=== PATIENT | male | born 1960 | race Caucasian/White ===

== ENCOUNTER 2023-05-14 07:58 | Day surgery (SDC) | payer OTHER, SELFPAY ==
[2023-04-22 15:07] VITALS: BMI 29.9
[2023-05-01 09:05] VITALS: BMI 29.9
[2023-05-14 09:32] VITALS: BP 149/91; PULSE 93; RESP 14; TEMP 36.6; O2SAT 97
[2023-05-14] MEDS: LACTATED RINGERS 1,000 ML 150 ML IV CONT (09:40)
--- NOTE | 2023-05-14 09:50 | PM.HPGS ---
History of Present Illness History of Present Illness Consent: Risks, benefits, and alternatives have been discussed and questions answered. Patient agrees to proceed with procedure. Chief complaint: Positive Cologuard test Narrative: Nikita Davey is a 62 year old male presents for screening colonoscopy. Patient was found to have a positive Cologuard test. Patient's current weight appetite and bowel movements are normal. Patient denies abdominal pain. He has had no bleeding. Family history is noncontributory. Review of Systems Review of Systems: Review of systems noncontributory. [facility] Past Medical History Medical History (Updated 05/14/23 @ 09:52 by Enoch Sullivan MD) Abnormal fasting glucose (12/05/20) glucose 100. Glucose 99 on 02/19/2022. glucose 97 with hemoglobin A1c 5.7 on 02/21/2023. BMI 29.0-29.9,adult Encounter for prostate cancer screening PSA 0.6 on 12/02/2019. PSA 1.08 on 02/19/2022. PSA 1.28 on 02/21/2023. Encounter for screening for malignant neoplasm of colon Cologuard screening Was negative 12/11/19. Encounter for wellness examination in adult Hypersomnia Overweight (BMI 25.0-29.9) Screening, lipid Wears hearing aid in both ears Surgical History Surgical History H/O repair of rotator cuff Family History Family History Mother , Age 43 Breast Cancer Breast cancer Father , Age 87 Cancer Cancer Grandparent Emphysema lung Grandparent , Brain Tumor No problems noted. Social History Social History Smoking status: Never smoker Alcohol intake: never Substance use: never Substance use type: does not use Current Housing: Decline to Answer Concerned About Future Housing: Decline to Answer Difficulty Paying Gas/Electric Bills: Decline to Answer Difficulty Paying for Meds: Decline to Answer Currently Unemployed: Decline to Answer Difficulty w/ Childcare or Family Care: Decline to Answer Living arrangements: with family Occupation/Education: occupation Gender identity (if verbalized by the patient): Male Spiritual care concerns: No Meds Home Medications and Allergies Home Medications Medication Instructions Recorded Confirmed Type amlodipine 10 mg tablet 10 mg PO DAILY #90 tabs 09/18/22 05/14/23 Rx atorvastatin 20 mg tablet 20 mg PO DAILY #90 tabs 09/18/22 05/14/23 Rx lisinopril 20 mg tablet 20 mg PO DAILY #90 tabs 03/16/23 05/14/23 Rx aspirin 81 mg tablet,delayed 81 mg PO DAILY 05/01/23 05/14/23 History release (Adult Low Dose Aspirin) Allergies Allergy/AdvReac Type Severity Reaction Status Date / Time No Known Allergies Allergy Unknown Verified 05/14/23 09:30 Vital Signs Vital Signs - 24 hr 05/14/23 09:32 Temperature 97.8 F Pulse Rate 93 Respiratory Rate 14 Blood Pressure 149/91 H Pulse Oximetry 97 Oxygen Delivery Room Air Exam Narrative: Physical exam reveals patient to be alert. Vital signs stable. HEENT exam is unremarkable. Patient is anicteric. Lungs are clear to auscultation and percussion heart is without murmur or extra sounds. Abdomen bowel sounds are present soft nontender with no organomegaly. Digital external rectal exam is normal. Assessment and Plan Assessment and plan (1) Positive colorectal cancer screening using Cologuard test: Code(s): R19.5 - Other fecal abnormalities Status: Acute Assessment and Plan: Patient's Cologuard test was positive. Plan for screening colonoscopy at this time.
--- NOTE | 2023-05-14 09:58 | WPDANESEPPF ---
Anes - Initial Pre Proc Eval Procedure: Operation Date: 05/14/23 11:00 Proposed Procedures p Diagnostic Colonoscopy - Enoch Sullivan MD Date/Time: 05/14/23 09:58 Surgeon: Enoch Sullivan MD Pre Op Diagnosis: Positive Cologuard test Patient Data Age: 62 Gender: M Height: 1.83 m Weight: 95.55 kg Last Vital Signs Temp 36.6 C 05/14/23 09:32 Pulse 93 05/14/23 09:32 Resp 14 05/14/23 09:32 BP 149/91 H 05/14/23 09:32 Pulse Ox 97 05/14/23 09:32 O2 Del Method Room Air 05/14/23 09:32 Allergies Allergy/AdvReac Type Severity Reaction Status Date / Time No Known Allergies Allergy Unknown Verified 05/14/23 09:30 Home Medications Medication Instructions Recorded Confirmed Type amlodipine 10 mg tablet 10 mg PO DAILY #90 tabs 09/18/22 05/14/23 Rx atorvastatin 20 mg tablet 20 mg PO DAILY #90 tabs 09/18/22 05/14/23 Rx lisinopril 20 mg tablet 20 mg PO DAILY #90 tabs 03/16/23 05/14/23 Rx aspirin 81 mg tablet,delayed 81 mg PO DAILY 05/01/23 05/14/23 History release (Adult Low Dose Aspirin) Patient hx anesthesia problems: none Family hx anesthesia problems: none Results Review: All pre-operative results and documents have been reviewed as part of the pre-operative evaluation. [facility] Past Medical History Medical History Abnormal fasting glucose (12/05/20) glucose 100. Glucose 99 on 02/19/2022. glucose 97 with hemoglobin A1c 5.7 on 02/21/2023. BMI 29.0-29.9,adult Encounter for prostate cancer screening PSA 0.6 on 12/02/2019. PSA 1.08 on 02/19/2022. PSA 1.28 on 02/21/2023. Encounter for screening for malignant neoplasm of colon Cologuard screening Was negative 12/11/19. Encounter for wellness examination in adult Hypersomnia Overweight (BMI 25.0-29.9) Screening, lipid Wears hearing aid in both ears Surgical History Surgical History H/O repair of rotator cuff Family History Family History Mother , Age 43 Breast Cancer Breast cancer Father , Age 87 Cancer Cancer Grandparent Emphysema lung Grandparent , Brain Tumor No problems noted. Social History Social History Smoking status: Never smoker Alcohol intake: never Substance use: never Substance use type: does not use Current Housing: Decline to Answer Concerned About Future Housing: Decline to Answer Difficulty Paying Gas/Electric Bills: Decline to Answer Difficulty Paying for Meds: Decline to Answer Currently Unemployed: Decline to Answer Difficulty w/ Childcare or Family Care: Decline to Answer Living arrangements: with family Occupation/Education: occupation Gender identity (if verbalized by the patient): Male Spiritual care concerns: No Anes - Eval Final PreProcedure Day of Procedure 05/14/23 09:58 Patient weight: overweight Heart: regular rate and rhythm Lungs: clear to auscultation Airway: Mallampati scale class II Neurological: alert and oriented Last oral intake: >/= 8 hours ASA classification: II Emergent: no Anesthetic plan: proceed Anesthesia type and monitoring: general GIVS and standard monitoring Results Review: All pre-operative results and documents have been reviewed as part of the pre-operative evaluation. Informed Consent: The patient's anesthetic plan and its attendant risks and benefits were discussed with the patient/family/POA. Questions were solicited and answers provided to the satisfaction of the patient/family/POA.
[2023-05-14 10:33] VITALS: BP 113/76; PULSE 73; RESP 16; O2SAT 95
[2023-05-14 10:43] VITALS: BP 111/66; PULSE 77; RESP 18; O2SAT 97
--- NOTE | 2023-05-14 10:47 | WPDANESPN ---
Anes - Prog Note Post-Op Date/Time: 05/14/23 10:47 Cardiovascular status: normal Respiratory status: normal Airway patency: baseline Mental status: baseline Post-Op hydration status: normal Vital Signs: Last Vital Signs Temp 36.6 C 05/14/23 09:32 Pulse 73 05/14/23 10:33 Resp 16 05/14/23 10:33 BP 113/76 05/14/23 10:33 Pulse Ox 95 05/14/23 10:33 O2 Del Method Room Air 05/14/23 10:33 Pain Score (VAS): 0/10 I/O: Intake & Output 05/13/23 05/14/23 05/14/23 23:59 07:59 15:59 Intake Total 800 Balance 800 Patient Feedback: Patient satisfied with anesthetic care.
[2023-05-14 10:53] VITALS: BP 110/67; PULSE 75; RESP 18; O2SAT 97
== END 2023-05-14 11:00 | disposition home or self-care (01) ==
PROVIDERS: PCP Family Medicine; Visit Provider Internal Medicine Gastroenterology
PROC: 0DJD8ZZ Inspection of Lower Intestinal Tract, Via Natural or Artificial Opening Endoscopic (ICD-10-PCS; CPT 45378; principal; 2023-05-14 11:00)
DX: R19.5 Other fecal abnormalities (principal); K64.8 Other hemorrhoids
CPT/HCPCS: 45378

== ENCOUNTER 2024-12-14 09:47 | Outpatient (CLI) | payer OTHER, SELFPAY ==
--- OUTSIDE RECORDS SUMMARY | 2024-12-14 09:58 | XMS_ITS | Clinical Summary ---
Author Organization [facility] Address [address] [place] [address] Care Team Providers Care Filling And Packing Supervisor Name Role Phone Unavailable Primary Care Provider Unavailabl e Social History Tobacco Use Types Packs/Day Years Used Date Smoking Tobacco: Never Assessed Sex and Gender Information Value Date Recorded Sex Assigned at Not on file Legal Sex Male 9:13 AM FRAME [employer] Gender Identity Not on file Sexual Orientation Not on file Plan of Treatment Health Maintenance Due Date Last Done Comments DTAP/TDAP/TD VACCINES (1 - Tdap) 07/31/1978 COLORECTAL SCREENING 07/31/2004 Colorectal Cancer Screening 07/31/2004 FIT-DNA Q 3 years 07/31/2004 FIT/FOBT Q 1 year 07/31/2004 Flex Sig/CT Colonography Q 5 years 07/31/2004 PNEUMOCOCCAL VACCINE 50+ YEARS (1 of 1 - PCV) 08/01/19 10 ZOSTER VACCINE (1 of 2) 07/31/2009 INFLUENZA VACCINE (#1) 2024 RSV VACCINE (60+ or ) (1 - 1-dose 75+ series) 07/31/2034
--- NOTE | 2024-12-14 11:08 | ECG_ITS ---
Test Date: 2024-12-14 11:20:08 Measurements Intervals [place] Rate: 87 P: 44 NE: 195 QRS: 59 QRSD: 95 T: 48 QT: 353 QTc: 426 Interpretive Statements SINUS RHYTHM BASELINE ARTIFACT- I, II, III, AVR, AVL, AVF, V1 NORMAL ECG No previous ECG available for comparison Electronically Signed On 12-14-2024 11:41:32 CDT by Celestine Lawson D.O.
== END 2024-12-14 09:48 | disposition home or self-care (01) ==
PROVIDERS: PCP Family Medicine; Referring Provider Family Medicine; Visit Provider Orthopaedic Surgery
DX: Z01.810 Encounter for preprocedural cardiovascular examination (principal); M75.102 Unspecified rotator cuff tear or rupture of left shoulder, not specified as traumatic
CPT/HCPCS: 93005

== ENCOUNTER 2024-12-15 06:36 | Outpatient (CLI) | payer OTHER, SELFPAY ==
--- OUTSIDE RECORDS SUMMARY | 2024-12-15 06:42 | XMS_ITS | Clinical Summary ---
Author Organization [facility] Address [address] [place] [address] Care Team Providers Care Ichthyology Teacher Name Role Phone Unavailable Primary Care Provider Unavailabl e Social History Tobacco Use Types Packs/Day Years Used Date Smoking Tobacco: Never Assessed Sex and Gender Information Value Date Recorded Sex Assigned at Not on file Legal Sex Male 9:13 AM [employer] Gender Identity Not on file Sexual Orientation [...]
[2024-12-15 08:21] LABS: Hematocrit 45.5 % (42.0-52.0); Hemoglobin 15.7 g/dL (14.0-18.0); Mean Corpuscular HGB Conc 34.5 g/dl (32-36); Mean Corpuscular Hemoglobin 31.4 pg (26-34); Mean Corpuscular Volume 91.0 fl (80-100); Platelet Count Result 368 k/mm3 (150-375); Red Blood Count 5.00 M/mm3 (4.6-6.20); White Blood Count 6.4 K/mm3 (4.5-10.0)
[2024-12-15 08:47] LABS: Alanine Aminotransferase 25 U/L (6-50); Albumin Level 4.2 g/dL (3.5-5.1); Alkaline Phosphatase 76 U/L (38-126); Anion Gap 9 mmol/L (4-12); Aspartate Amino Transferase 27 U/L (17-59); Bilirubin,Total 0.5 mg/dL (0.2-1.3); Blood Urea Nitrogen 13 mg/dL (9-20); Calcium 9.2 mg/dL (8.4-10.2); Carbon Dioxide 22 mmol/L (22-30); Chloride 108 mmol/L (98-107); Estimated Glomerular Filt Rate > 60; Glucose 97 mg/dL (65-110); Potassium 4.1 mmol/L (3.4-5.0); Sodium 139 mmol/L (137-145); Total Protein 7.2 g/dL (6.3-8.2)
== END 2024-12-15 06:37 | disposition home or self-care (01) ==
PROVIDERS: PCP Family Medicine; Visit Provider Orthopaedic Surgery
DX: Z01.812 Encounter for preprocedural laboratory examination (principal); M75.102 Unspecified rotator cuff tear or rupture of left shoulder, not specified as traumatic
CPT/HCPCS: 36415; 80053; 85027